=== PATIENT | female | born 1960 | race Caucasian/White ===

== ENCOUNTER → 2018-04-08 13:16 | Outpatient (CLI) | payer OTHER, SELFPAY ==
--- NOTE | 2018-04-08 13:23 | BD_ITS ---
STUDY: DUAL ENERGY X-RAY ABSORPTIOMETRY / DXA REASON FOR EXAM: Female, 57 years old. The patient is postmenopausal. No loss of height. TECHNIQUE: Bone Mineral Density (BMD) measurements of lumbar spine and bilateral hips were obtained. COMPARISON: None. FINDINGS: Lumbar Spine (L1-L4): g/cm2 (1.053) / T-score (-1.1) / Z-score (-0.1) Findings are suggestive of osteopenia with a moderate fracture risk. Left Femur Total: g/cm2 (0.791) / T-score (-1.7) / Z-score (-1.0) Left Femoral Neck: g/cm2 (0.794) / T-score (-1.8) / Z-score (-0.7) Right Femur Total: g/cm2 (0.806) / T-score (-1.6) / Z-score (-0.9) Right Femoral Neck: g/cm2 (0.826) / T-score (-1.5) / Z-score (-0.4) BD/Dexa Bone Density Study IMPRESSION: The patient is considered osteopenic as outlined below according to World Art Organization (WHO) criteria with a moderate fracture risk. Reference Information: The T-score is the number of standard deviations above or below the standard which is normal for young adults at their peak bone mineral density. The World Health Organization (WHO) interprets the T-scores as follows: Above -1 Normal bone density Between -1 and -2.5 Osteopenia Equal to / or below -2.5 Osteoporosis As a practical clinical guideline, osteopenia may be graded as follows: Mild -1 through -1.5 Moderate -1.6 through -2.0 Severe -2.1 through -2.4 The Z-score is the number of standard deviations above or below age-matched controls. A Z-score of less than -1.5 would be considered abnormal. References: 1. NIH Osteoporosis and Related Bone Diseases http://www.osteo.org 2. International Society for Clinical Densitometry http://www.iscd.org 3. National Osteoporosis Foundation http://www.nof.org Electronically Signed: Ehsan Sifuentes MD at 9:29 EDT Tel [phone], Service support ,
== END ==
PROVIDERS: Family Provider Family Medicine; PCP Family Medicine; Visit Provider Family Medicine
DX: Z00.00 Encounter for general adult medical examination without abnormal findings (principal)
CPT/HCPCS: 77080

== ENCOUNTER → 2018-06-06 15:18 | Outpatient (CLI) | payer OTHER, SELFPAY | PROVIDERS: Family Provider Family Medicine; PCP Family Medicine; Visit Provider Family Medicine | DX: Z00.00 Encounter for general adult medical examination without abnormal findings (principal); Z12.31 Encounter for screening mammogram for malignant neoplasm of breast | CPT/HCPCS: 77063; 77067 ==

== ENCOUNTER → 2018-06-16 08:55 | Outpatient (CLI) | payer OTHER, SELFPAY ==
--- NOTE | 2018-06-16 08:57 | BI_ITS ---
MAMMOGRAPHY - UNILATERAL DIAGNOSTIC: RIGHT BREAST REASON FOR EXAM: Female, 57 years old. Abnormal screening mammogram. PERTINENT HISTORY: Non-contributory. TECHNIQUE: Magnification spot views of the right breast were obtained. CAD: Full Field Digital Mammography with Computer Added Detection was performed. COMPARISON: Comparison is made with prior study dated June 06, 2018. FINDINGS: Breast Composition: The breasts are extremely dense, which lowers the sensitivity of mammography. The cluster of microcalcifications in the upper slightly outer portion of the right breast were examined. A biopsy is recommended. No other significant abnormalities are identified. BI/DIAG MAMM W/CAD, UNILAT IMPRESSION: Cluster microcalcification in the right breast as described. A biopsy is recommended. ASSESSMENT CATEGORY: BIRADS Category 4: Suspicious - Biopsy Should Be Considered. A letter regarding these results will be sent to the patient by the facility within 30 days. Approximately 10% of breast cancers are not detected by mammography. A normal mammogram should not delay biopsy of a clinically suspicious abnormality. Electronically Signed: Ehsan Sifuentes MD at 10:11 EDT Tel [phone], Service support ,
== END ==
PROVIDERS: Family Provider Family Medicine; PCP Family Medicine; Visit Provider Family Medicine
DX: R92.8 Other abnormal and inconclusive findings on diagnostic imaging of breast (principal)
CPT/HCPCS: 77065

== ENCOUNTER → 2018-06-27 08:02 | Outpatient (CLI) | payer OTHER, SELFPAY ==
--- NOTE | 2018-06-27 | BRBX_PTH ---
PATIENT: EYAD MCKEON LOC: [facility] U#:[id number] AGE/SX: 65/F ROOM: RE06/27/[address]: Dr. Raquel English MD : 1960 BED: DIS: SPEC #: [id number] RECD: 06/27/18 14:33 STATUS: ABRAN LAURENCE #: [id number] RICHARD: 06/27/18 00:[address]: Raquel English DEPT: SURGICAL PATHOLOGY RECD BY: Rocky Coates ENTERED: 06/27/18 14:34 SP TYPE: BREAST BX OTHR DR: Dr. Dee Pratt MD Tissues: Right breast, NOS Procedures: Surgery Specimen Level IV HEADER OPERATION: Right stereotactic breast biopsy PRE-OP DIAGNOSIS: Right upper outer breast microcalcifications TISSUE SUBMITTED: Right breast core tissue ISCHEMIC TIME: 1 minute FIXATION TIME: 59 hours MICROSCOPIC DIAGNOSIS Right breast, upper outer breast microcalcification, stereotactic core biopsy: Fibrocystic changes and focal dense fibrosis. Negative for atypia or malignancy. Polarizable microcalcifications are noted. BRENT:sriram 06/30/18 COMMENT Correlation with clinical, radiologic findings and appropriate follow up are necessary. MICROSCOPIC DESCRIPTION Slides are reviewed. GROSS DESCRIPTION Received is one container labeled with the patient's name and not further designated. The specimen consists of multiple elongated fragments of chung-yellow fibroadipose tissue that in aggregate measure 3 x 2.5 x 0.3 cm. The entire specimen is submitted in one cassette. / BRENT:sriram 06/27/18 TC:5 CPT: 84926
--- NOTE | 2018-06-27 09:11 | PCM.OP.BLANK ---
Operative Report Date of Procedure: 06/27/18 Rocedure: Stereotactic core biopsy Indications: 57 year-old female with microcalcifications in the upper outer portion of the right breast. Risk benefits were discussed the patient and she elected to proceed with stereotactic core biopsy with clip placement Description of procedure: Patient was brought into the mammography suite and laid prone on the stereotactic table. A timeout was completed verifying correct patient, procedure, site, specially, prior to beginning procedure. The right breast was prepped and draped in usual sterile fashion and using local anesthesia was obtained with 1% lidocaine with epi. Patient's right breast was positioned and placed into compression. Initial film showed calcifications are in the center of the compression paddle. 15? views were then taken. The calcifications were localized. The left breast was prepped draped in usual sterile fashion. An 8-gauge mammotome was set up according to the digital coordinates. The tract of the mammotome was anesthetized with local anesthesia and an incision was made with the 11 blade scalpel at the entry site. The mammotome was advanced to the prefire state. Pre-prior films were checked and verified. The mammotome was fired. Post fire films were also checked and verified. Biopsies were taken from 11:00 to 7:00. The specimen was x-rayed and all the calcifications were within the specimen. Mammotome revolve petite clip was placed at the 12 o'clock position. The mammotome was removed from the breast. An additional films were taken which showed all calcifications were removed and a clip was in place. Pressure was held for hemostasis. Once hemostasis was assured the wound was dressed with Steri-Strips and OpSite. Patient was also taken to the mammography suite for two-view mammography post-biopsy. The patient tolerated the procedure well and was discharged from the mammography suite good condition. complications: none
--- NOTE | 2018-06-27 09:14 | OP.PCM_ITS ---
Operative Report Date of Procedure: 06/27/18 Rocedure: Stereotactic core biopsy Indications: 57 year-old female with microcalcifications in the upper outer portion of the right breast. Risk benefits were discussed the patient and she elected to proceed with stereotactic core biopsy with clip placement Description of procedure: Patient was brought into the mammography suite and laid prone on the stereotactic table. A timeout was completed verifying correct patient, procedure, site, specially, prior to beginning procedure. The right breast was prepped and draped in usual sterile fashion and using local anesthesia was obtained with 1% lidocaine with epi. Patient's right breast was positioned and placed into compression. Initial film showed calcifications are in the center of the compression paddle. 15? views were then taken. The calcifications were localized. The left breast was prepped draped in usual sterile fashion. An 8-gauge mammotome was set up according to the digital coordinates. The tract of the mammotome was anesthetized with local anesthesia and an incision was made with the 11 blade scalpel at the entry site. The mammotome was advanced to the prefire state. Pre-prior films were checked and verified. The mammotome was fired. Post fire films were also checked and verified. Biopsies were taken from 11:00 to 7:00. The specimen was x-rayed and all the calcifications were within the specimen. Mammotome revolve petite clip was placed at the 12 o'clock position. The mammotome was removed from the yen ast. An additional films were taken which showed all calcifications were removed and a clip was in place. Pressure was held for hemostasis. Once hemostasis was assured the wound was dressed with Steri-Strips and OpSite. Patient was also taken to the mammography suite for two-view mammography post- biopsy. The patient tolerated the procedure well and was discharged from the mammography suite good condition. complications: none
== END ==
PROVIDERS: Family Provider Family Medicine; PCP Family Medicine; Visit Provider Surgery
DX: R92.0 Mammographic microcalcification found on diagnostic imaging of breast (principal)
CPT/HCPCS: 19081; 88305; J7050

== ENCOUNTER → 2020-04-14 15:21 | Outpatient (CLI) | payer OTHER, SELFPAY ==
--- NOTE | 2020-04-14 15:23 | BI_ITS ---
MAMMOGRAPHY - BILATERAL SCREENING REASON FOR EXAM: Female, 59 years old. Routine annual screening examination. PERTINENT HISTORY: Non-contributory. TECHNIQUE: Digital bilateral breast hank (3D mammographic acquisition) in the CC and MLO projections. 2-D mediolateral oblique (MLO) and craniocaudad (CC) views of both breasts were obtained. CAD: Full Field Digital Mammography with Computer Added Detection was performed. COMPARISON: Comparison is made with prior study of June 16, 2018 and June 27 2018. FINDINGS: Breast Composition: The breasts are extremely dense, which lowers the sensitivity of mammography. There are no dominant masses or suspicious calcifications. A tissue clip marker is seen in the upper anterior lateral aspect of the right breast. The previously seen calcifications are not seen at this time. No other significant abnormalities are identified. There has been no significant change since the prior study. BI/SCREEN MAMM (CAD) W/HANK BILAT IMPRESSION: Stable bilateral screening mammogram. Yearly follow-up mammogram recommended. (A) ASSESSMENT CATEGORY: BIRADS Category 2: Benign. A letter regarding these results will be sent to the patient by the facility within 30 days. Approximately 10% of breast cancers are not detected by mammography. A normal mammogram should not delay biopsy of a clinically suspicious abnormality. [id number] Electronically Signed: Ehsan Sifuentes, at 8:09 EDT , Service support ,
--- NOTE | 2020-04-14 15:26 | BD_ITS ---
STUDY: DUAL ENERGY X-RAY ABSORPTIOMETRY / DXA REASON FOR EXAM: Female, 59 years old. 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 COMPARISON: Comparison is made with prior study dated April 08, 2018. FINDINGS: Lumbar Spine (L1-L4): g/cm2 (1.067) / T-score (-0.9) / Z-score (0.1) Findings are suggestive of normal bone density with a low fracture risk. Left Femur Total: g/cm2 (0.814) / T-score (-1.5) / Z-score (-0.7) Left Femoral Neck: g/cm2 (0.794) / T-score (-1.8) / Z-score (-0.6) Right Femur Total: g/cm2 (0.811) / T-score (-1.6) / Z-score (-0.7) Right Femoral Neck: g/cm2 (0.808) / T-score (-1.7) / Z-score (-0.5) The T-Scores on the most recent prior examination were: Lumbar Spine (L1-L4): There has been improvement of bone density since the previous examination. Left Femur Total: which represents an improvement of 2.9%. Right Femur Total: which represents an improvement of 0.6%. BD/Dexa Bone Density Study IMPRESSION: The patient is considered osteopenic as outlined below according to World Art Organization (WHO) criteria with a moderate fracture risk. There has been improvement of bone density since the previous examination. Reference Information: The T-score is the number of standard deviations above or below the standard which is normal for young adults at their peak bone mineral density. The World Health Organization (WHO) interprets the T-scores as follows: Above -1 Normal bone density Between -1 and -2.5 Osteopenia Equal to / or below -2.5 Osteoporosis As a practical clinical guideline, osteopenia may be graded as follows: Mild -1 through -1.5 Moderate -1.6 through -2.0 Severe -2.1 through -2.4 The Z-score is the number of standard deviations above or below age-matched controls. A Z-score of less than -1.5 would be considered abnormal. References: 1. NIH Osteoporosis and Related Bone Diseases http://www.osteo.org 2. International Society for Clinical Densitometry http://www.iscd.org 3. National Osteoporosis Foundation http://www.nof.org Electronically Signed: Ehsan Sifuentes, at 8:46 EDT , Service support ,
== END ==
PROVIDERS: PCP Family Medicine; Referring Provider Family Medicine; Visit Provider Family Medicine
DX: Z12.31 Encounter for screening mammogram for malignant neoplasm of breast (principal); M85.80 Other specified disorders of bone density and structure, unspecified site
CPT/HCPCS: 77063; 77067; 77080

== ENCOUNTER → 2020-08-30 16:50 | Outpatient (CLI) | payer OTHER, SELFPAY ==
[2020-08-30 13:54] VITALS: BMI 21.0
== END ==
PROVIDERS: PCP Family Medicine; Referring Provider Nurse Practitioner Women's Health; Visit Provider Nurse Practitioner Women's Health
DX: R30.9 Painful micturition, unspecified (principal)
CPT/HCPCS: 87086; 87088; 87186

== ENCOUNTER → 2021-04-18 14:56 | Outpatient (CLI) | payer BC, SELFPAY ==
[2020-11-30 08:04] VITALS: BMI 20.8
--- NOTE | 2021-04-18 14:57 | BI_ITS ---
MAMMOGRAPHY - BILATERAL SCREENING REASON FOR EXAM: Female, 60 years old. Routine annual screening examination. PERTINENT HISTORY: Non-contributory. History of prior right stereotactic breast biopsy. TECHNIQUE: Digital bilateral breast hank (3D mammographic acquisition) in the CC and MLO projections. 2-D mediolateral oblique (MLO) and craniocaudad (CC) views of both breasts were obtained. CAD: Full Field Digital Mammography with Computer Added Detection was performed. COMPARISON: Comparison is made with prior study dated 04/14/2020 and 06/16/2018. FINDINGS: Breast Composition: The breasts are extremely dense, which lowers the sensitivity of mammography. There are no dominant masses or suspicious calcifications. Once again, a tissue clip marker is seen in the slightly upper lateral anterior aspect of the right breast. No other significant abnormalities are identified. There has been no significant change since the prior study. BI/SCRN MAMM (CAD)W/HANK BILAT IMPRESSION: Stable bilateral screening mammogram. Yearly follow-up mammogram recommended. (A) ASSESSMENT CATEGORY: BIRADS Category 2: Benign. A letter regarding these results will be sent to the patient by the facility within 30 days. Approximately 10% of breast cancers are not detected by mammography. A normal mammogram should not delay biopsy of a clinically suspicious abnormality. [id number] Electronically Signed: Ehsan Sifuentes MD at 15:47 EDT , Service support ,
== END ==
PROVIDERS: PCP Family Medicine; Referring Provider Nurse Practitioner Women's Health; Visit Provider Nurse Practitioner Women's Health
DX: Z12.31 Encounter for screening mammogram for malignant neoplasm of breast (principal)
CPT/HCPCS: 77063; 77067

== ENCOUNTER → 2021-04-20 10:51 | Outpatient (CLI) | payer BC, SELFPAY ==
[2020-11-30 08:04] VITALS: BMI 20.8
--- NOTE | 2021-04-20 10:53 | US_ITS ---
STUDY: ULTRASOUND BREAST - RIGHT REASON FOR EXAM: Female, 60 years old. Abnormal screening mammogram. TECHNIQUE: Axial and longitudinal images of the RIGHT breast were performed with a high resolution ultrasound transducer. # OF IMAGES: 23 COMPARISON: Comparison is made with prior mammogram dated 04/18/2021. FINDINGS: RIGHT Breast: The mammographic abnormality corresponds to a 3 mm x 3 mm x 4 mm hypoechoic slightly irregular nodule at the 11 o''clock position in the breast at 3 cm from nipple. Biopsy is recommended. US/Breast Limited Unilateral IMPRESSION: 3 mm x 3 mm x 4 mm hypoechoic slightly irregular nodule at the 11 o''clock position of the breast 3 cm from nipple. Biopsy is recommended. ASSESSMENT CATEGORY: BIRADS Category 4: Suspicious - Biopsy Should Be Considered. A letter regarding these results will be sent to the patient by the facility within 30 days. Electronically Signed: Ehsan Sifuentes MD at 13:01 EDT , Service support ,
== END ==
PROVIDERS: PCP Family Medicine; Referring Provider Nurse Practitioner Women's Health; Visit Provider Nurse Practitioner Women's Health
DX: N63.10 Unspecified lump in the right breast, unspecified quadrant (principal)
CPT/HCPCS: 76642

== ENCOUNTER → 2021-05-02 12:46 | Outpatient (CLI) | payer BC, SELFPAY ==
[2021-04-25 10:01] VITALS: BMI 20.2
--- NOTE | 2021-05-02 | BRBX_PTH ---
PATIENT: EYAD MCKEON LOC: [facility] U#:[id number] AGE/SX: 65/F ROOM: RE05/02/[address]: Dr. Raquel English MD : 1960 BED: DIS: SPEC #: [id number] RECD: 05/02/21 14:13 STATUS: ABRAN LAURENCE #: [id number] RICHARD: 05/02/21 00:[address]: Raquel English DEPT: SURGICAL PATHOLOGY RECD BY: Jeannie Kelly ENTERED: 05/03/21 09:38 SP TYPE: BREAST BX OTHR DR: Dr. Dee Pratt MD Tissues: Breast, NOS Procedures: Surgery Specimen Level IV HEADER OPERATION: Ultrasound-guided right breast biopsy PRE-OP DIAGNOSIS: Abnormal mammogram TISSUE SUBMITTED: Right breast MICROSCOPIC DIAGNOSIS Right breast, ultrasound-guided core biopsy: Adenosis. AM:sriram 05/04/2021 COMMENT Immunohistochemistry ([id number]) supports the above diagnosis. The lesion may represent a central scar. Clinical correlation is suggested. Case has been reviewed in consultation with Dr. Alexander who concurs with the above diagnosis. IDC:SJ MICROSCOPIC DESCRIPTION Slides are reviewed. GROSS DESCRIPTION Received in fixative is one container labeled with the patient name and designated right breast. The specimen consists of multiple elongated fragments of chung-yellow fibroadipose tissue that in aggregate measure 3 x 2.5 x 0.2 cm. The entire specimen is submitted in one cassette. / BRENT:sriram 05/03/21 TC:5 CPT: 73885
--- NOTE | 2021-05-02 | IMM_PTH ---
PATIENT: EYAD MCKEON LOC: [facility] U#:[id number] AGE/SX: 65/F ROOM: RE05/02/[address]: Dr. Raquel English MD : 1960 BED: DIS: SPEC #: [id number] RECD: 05/05/21 10:51 STATUS: ABRAN REQ #: [id number] RICHARD: 05/02/21 00:[address]: Raquel English DEPT: IMMUNOHISTOCHEMISTRY RECD BY: Maxine Baron ENTERED: 05/05/21 10:52 SP TYPE: IMMUNO OTHR DR: Dr. Dee Pratt MD Tissues: Right breast, NOS Procedures: Calponin-1(initial) CK5-6 (add) P40 (add) PHYSICIAN & INSTITUTION [facility] [id number] SPECIMEN INFORMATION: Tissue Source: Right breast Clinical Info: Abnormal mammogram Specimen Number: [id number] CPT code: 97301, 29453 x2 METHODOLOGY: Deparaffinized sections of prefer/formalin-fixed tissue or PAP/DQ stained slides are incubated with monoclonal/polyclonal antibodies/oligonucleotide probes. Localization is made via biotin free immunoperoxidase method. Appropriate controls are performed and reacted as expected. Results on target cell population are indicated in the following table: RESULTS: ANTIBODY / CLONE RESULT P40 (BC28) positive Calponin-1 ([id number]) positive CK5-6 (D5 & 1684) positive These tests were developed and their performance characteristics determined by [facility]. They may not have been cleared or approved by the U.S. Food and Drug Administration. The FDA has determined that such clearance or approval is not necessary. The above immunohistochemical/dualISH markers are ordered and reviewed by the Pathologist. INTERPRETATION: Right breast, ultrasound-guided biopsy: Consistent with adenosis. AM:sriram 05/08/2021 Case has been reviewed in consultation with Dr. Alexander who concurs with the above diagnosis. IDC:SJ
--- NOTE | 2021-05-02 12:48 | US_ITS ---
EXAM DESCRIPTION: Ultrasound directed right breast biopsy CLINICAL HISTORY: 60 years Female, abnormal breast US COMPARISON: Previous breast ultrasound obtained on 04/20/2021 FINDINGS: An ultrasound directed right breast biopsy was performed by Dr. JESSE SANDERS. Multiple core biopsies were obtained with ultrasound guidance. After this a clip was placed at the site of the biopsy. This was confirmed by a couple mammogram images. US/US Breast Biopsy 1st Lesion IMPRESSION: An ultrasound directed breast biopsy was performed, as described above Electronically Signed: Teddy Hamilton DO at 14:51 EDT Tel , Service support ,
--- NOTE | 2021-05-02 14:07 | PCM.OPRPT ---
Report of Operation Date of Procedure: 05/02/21 Pre-Operative Diagnosis: Right breast mass Post-Operative Diagnosis: Same Surgery/Procedure Performed:: Ultrasound-guided right breast biopsy 11:00 4 cm from the nipple Surgeon: Raquel English Type of Anesthesia: Local Specimen's removed: Right breast mass 11:00 4 cm from the nipple Description of Procedure: Procedure: ultrasound-guided core biopsy Indications: 60 year-old female with hypoechoic nodule at 11:00 in the right breast 4 centimeters from the nipple. Risk benefits were discussed the patient and she elected to proceed with ultrasound guided core biopsy with clip placement Description of procedure: Patient was brought into the ultrasound room in the right breast was marked. A timeout was completed verifying correct patient, procedure, site, specially, prior to beginning procedure. The right breast was prepped and draped in usual sterile fashion and using local anesthesia was obtained with 1% lidocaine with epi. The lesion was located with the ultrasound. Small incision was made with 11 blade to introduced the BARD MaxCore through the skin. Under ultrasound guidance multiple core samples were obtained using then 14-gauge BARD MaxCore; however appeared that the biopsy device slid over the top of the lesion and the first sample did get a small amount second. Did exchange devices to the mammotome. 13-gauge mammotome was used to take multiple samples. All specimens were sent in formalin for pathology. The mammotome mammostar clip was then deployed into the biopsy cavity under ultrasound guidance and a picture was taken. Upon completion procedure hemostasis was obtained and a Steri-Strip and OpSite were placed. Patient was then taken to the mammography suite for clip verification. The clip was verified--it is the more superior barbell clip on the MLO view. The patient tolerated the procedure well and was discharged from the breast imaging department good condition. complications: none Complications None
== END ==
PROVIDERS: PCP Family Medicine; Referring Provider Surgery; Visit Provider Surgery
DX: N63.11 Unspecified lump in the right breast, upper outer quadrant (principal)
CPT/HCPCS: 19083; 88305; 88341; 88342

== ENCOUNTER → 2021-07-17 | Outpatient (CLI) | payer BC, SELFPAY | END | disposition home or self-care (01) | LOC: LABSPEC 10:12 | PROVIDERS: PCP Family Medicine; Referring Provider Physician Assistant; Visit Provider Physician Assistant | DX: Z20.822 Contact with and (suspected) exposure to COVID-19 (principal) | CPT/HCPCS: 87635; U0005; U0003 ==

== ENCOUNTER → 2021-09-27 | Outpatient (CLI) | payer BC, SELFPAY | END | disposition home or self-care (01) | LOC: LABSPEC 13:07 | PROVIDERS: PCP Family Medicine; Referring Provider Nurse Practitioner Women's Health; Visit Provider Nurse Practitioner Women's Health | DX: R39.15 Urgency of urination (principal) | CPT/HCPCS: 87086; 87088; 87186 ==

== ENCOUNTER → 2022-05-14 | Outpatient (CLI) | payer OTHER, SELFPAY ==
--- NOTE | 2022-05-14 10:08 | BI_ITS ---
MAMMOGRAPHY - BILATERAL SCREENING 3-D TOMOSYNTHESIS REASON FOR EXAM: Female, 61 years old. SCREENING PERTINENT HISTORY: No significant family history. TECHNIQUE: 2-D mammograms and 3-D Tomosynthesis of the breast (s) were performed. CAD was performed. COMPARISON: 04/18/2021 FINDINGS: The breast composition is heterogeneously dense that can obscure small breast masses. Scattered benign calcifications are seen. No dense spiculated masses or suspicious microcalcifications are identified. No architectural distortion is identified. There is no skin thickening or retraction. There has been no significant change since the prior study. BI/SCRN MAMM (CAD)W/HANK BILAT IMPRESSION: No mammographic signs of malignancy. Routine yearly mammograms recommended. ASSESSMENT CATEGORY: BIRADS Category 1: Negative. A letter regarding these results will be sent to the patient by the facility within 30 days. FOLLOW UP RECOMMENDATION: Yearly follow up mammogram recommended. (A) Approximately 10% of breast cancers are not detected by mammography. A normal mammogram should not delay biopsy of a clinically suspicious abnormality. Electronically Signed: Kirill Flynn MD at 15:56 EDT ,
== END | disposition home or self-care (01) ==
LOC: OPBI 10:07
PROVIDERS: PCP Family Medicine; Visit Provider Family Medicine
DX: Z12.31 Encounter for screening mammogram for malignant neoplasm of breast (principal)
CPT/HCPCS: 77063; 77067

== ENCOUNTER → 2023-01-18 | Outpatient (CLI) | payer OTHER, SELFPAY ==
--- NOTE | 2023-01-18 11:52 | RAD_ITS ---
STUDY: X-RAY - RIGHT HAND REASON FOR EXAM: Female, 62 years old. HAND PAIN TECHNIQUE: 3 view(s) of the hand. COMPARISON: None. FINDINGS: Normal radiocarpal articulation. Normal distal radioulnar joint. Normal visualized carpal bones. Normal carpal articulations Normal carpometacarpal articulation of the thumb. Normal second through fifth carpometacarpal joints. Normal metacarpi. Normal metacarpophalangeal joint of the thumb. Normal interphalangeal joint of the thumb. Normal proximal and distal phalanges of the thumb. Normal metacarpophalangeal joints of the second through fifth fingers. Normal proximal and distal interphalangeal joints of the second through fifth fingers. Normal phalanges of the second through fifth fingers. The soft tissue structures are unremarkable. RAD/Hand Min 3 Views IMPRESSION: Normal x-ray examination of the hand. Electronically Signed: Hilton Fajardo MD at 21:55 EDT ,
== END | disposition home or self-care (01) ==
LOC: MTRAD 11:50
PROVIDERS: PCP Family Medicine; Referring Provider Family Medicine; Visit Provider Family Medicine
DX: S60.221A Contusion of right hand, initial encounter (principal)
CPT/HCPCS: 73130

== ENCOUNTER → 2023-04-12 | Outpatient (CLI) | payer OTHER, SELFPAY ==
[2023-04-12 16:47] LABS: Vitamin D,25 Hydroxy 40.7 ng/mL
[2023-04-12 16:54] LABS: Cholesterol 248 mg/dL (200); High Density Lipoprotein 84 mg/dL; Triglycerides 54 mg/dL; Very Low Density Lipoprotein 11 mg/dL (5-40)
== END | disposition home or self-care (01) ==
LOC: MFPLAB 10:27
PROVIDERS: PCP Family Medicine; Visit Provider Family Medicine
DX: M85.80 Other specified disorders of bone density and structure, unspecified site (principal); E78.5 Hyperlipidemia, unspecified
CPT/HCPCS: 36415; 80061; 82306

== ENCOUNTER → 2023-05-15 | Outpatient (CLI) | payer OTHER, SELFPAY ==
--- NOTE | 2023-05-15 09:54 | BD_ITS ---
STUDY: DUAL ENERGY X-RAY ABSORPTIOMETRY / DXA REASON FOR EXAM: Female, 62 years old. 733.90OsteopeniaBONE DENSITY REASON FOR EXAM TECHNIQUE: Bone Mineral Density (BMD) measurements of lumbar spine and bilateral hips were obtained. COMPARISON: Comparison is made with prior study dated April 14, 2020. FINDINGS: Lumbar Spine (L1-L4): g/cm2 (0.939) / T-score (-1.0) / Z-score (0.6) Findings are suggestive of osteopenia with a low fracture risk. Left Femur Total: g/cm2 (0.730) / T-score (-1.7) / Z-score (-0.7) Left Femoral Neck: g/cm2 (0.636) / T-score (-1.9) / Z-score (-0.6) Right Femur Total: g/cm2 (0.729) / T-score (-1.7) / Z-score (-0.7) Right Femoral Neck: g/cm2 (0.676) / T-score (-1.6) / Z-score (-0.2) The T-Scores on the most recent prior examination were: Lumbar Spine (L1-L4): There has been worsening of bone density since the previous examination. Left Femur Total: which represents a worsening of 3%. Right Femur Total: which represents a worsening of 3%. BD/Dexa Bone Density Study IMPRESSION: The patient is considered osteopenic as outlined below according to World Art Organization (WHO) criteria with a moderate fracture risk. There has been worsening of bone density since the previous examination. Reference Information: The T-score is the number of standard deviations above or below the standard which is normal for young adults at their peak bone mineral density. The World Health Organization (WHO) interprets the T-scores as follows: Above -1 Normal bone density Between -1 and -2.5 Osteopenia Equal to / or below -2.5 Osteoporosis As a practical clinical guideline, osteopenia may be graded as follows: Mild -1 through -1.5 Moderate -1.6 through -2.0 Severe -2.1 through -2.4 The Z-score is the number of standard deviations above or below age-matched controls. A Z-score of less than -1.5 would be considered abnormal. References: 1. NIH Osteoporosis and Related Bone Diseases www osteo.org 2. International Society for Clinical Densitometry www iscd.org 3. National Osteoporosis Foundation www nof.org Electronically Signed: Ehsan Sifuentes MD at 10:38 EDT ,
--- NOTE | 2023-05-15 09:54 | BI_ITS ---
MAMMOGRAPHY - BILATERAL SCREENING REASON FOR EXAM: Female, 62 years old. Routine annual screening examination. PERTINENT HISTORY: Non-contributory. Prior right ultrasound breast biopsy and prior right stereotactic breast biopsy. TECHNIQUE: Digital bilateral breast hank (3D mammographic acquisition) in the CC and MLO projections. 2-D mediolateral oblique (MLO) and craniocaudad (CC) views of both breasts were obtained. CAD: Full Field Digital Mammography with Computer Added Detection was performed. COMPARISON: Comparison is made with prior study dated May 14, 2022 and April 18, 2021.. FINDINGS: Breast Composition: The breasts are extremely dense, which lowers the sensitivity of mammography. There are no dominant masses or suspicious calcifications. A tissue clip marker is once again seen in the slightly upper lateral anterior aspect of the right breast. A second tissue clip marker is seen within the tiny nodule in the anterior upper lateral aspect of the right breast as well. No other significant abnormalities are identified. There has been no significant change since the prior study. BI/SCRN MAMM (CAD)W/HANK BILAT IMPRESSION: Stable bilateral screening mammogram. Yearly follow-up mammogram recommended. (A) ASSESSMENT CATEGORY: BIRADS Category 2: Benign. A letter regarding these results will be sent to the patient by the facility within 30 days. Approximately 10% of breast cancers are not detected by mammography. A normal mammogram should not delay biopsy of a clinically suspicious abnormality. [id number] Electronically Signed: Ehsan Sifuentes MD at 10:55 EDT ,
== END | disposition home or self-care (01) ==
LOC: OPBD 09:49
PROVIDERS: PCP Family Medicine; Referring Provider Family Medicine; Visit Provider Family Medicine
DX: Z12.31 Encounter for screening mammogram for malignant neoplasm of breast (principal); M85.80 Other specified disorders of bone density and structure, unspecified site
CPT/HCPCS: 77063; 77067; 77080

== ENCOUNTER → 2024-04-20 | Outpatient (CLI) | payer OTHER, SELFPAY ==
[2024-04-20 15:31] LABS: AST(SGOT) 39 U/L (15-37); Alanine Aminotransfer ALT/SGPT 34 U/L (13-56); Cholesterol 158 mg/dL (200); High Density Lipoprotein 74 mg/dL; Triglycerides 89 mg/dL; Very Low Density Lipoprotein 18 mg/dL (5-40)
== END | disposition home or self-care (01) ==
LOC: MFPLAB 12:07
PROVIDERS: PCP Family Medicine; Visit Provider Family Medicine
DX: E78.5 Hyperlipidemia, unspecified (principal)
CPT/HCPCS: 36415; 80061; 84450; 84460

== ENCOUNTER → 2024-05-18 | Outpatient (CLI) | payer OTHER, SELFPAY ==
--- NOTE | 2024-05-18 08:33 | BI_ITS ---
MAMMOGRAPHY - BILATERAL SCREENING REASON FOR EXAM: Female, 63 years old. Routine annual screening examination. PERTINENT HISTORY: Non-contributory. History of prior right stereotactic breast biopsy. TECHNIQUE: Digital bilateral breast hank (3D mammographic acquisition) in the CC and MLO projections. 2-D mediolateral oblique (MLO) and craniocaudad (CC) views of both breasts were obtained. CAD: Full Field Digital Mammography with Computer Added Detection was performed. COMPARISON: Comparison is made with prior study May 15, 2023 and May 14, 2022. FINDINGS: Breast Composition: The breasts are extremely dense, which lowers the sensitivity of mammography. There are no dominant masses or suspicious calcifications. A tissue clip marker is once again seen in the slightly upper lateral anterior aspect of the right breast. A second surgical marker is also seen within the tiny nodule in the anterior upper lateral aspect of the right breast No other significant abnormalities are identified. There has been no significant change since the prior study. BI/SCRN MAMM (CAD)W/HANK BILAT IMPRESSION: Stable bilateral screening mammogram. Yearly follow-up mammogram recommended. (A) ASSESSMENT CATEGORY: BIRADS Category 2: Benign. A letter regarding these results will be sent to the patient by the facility within 30 days. Approximately 10% of breast cancers are not detected by mammography. A normal mammogram should not delay biopsy of a clinically suspicious abnormality. [id number] Electronically Signed: Ehsan Sifuentes MD at 9:32 EDT ,
== END | disposition home or self-care (01) ==
LOC: OPBI 08:33
PROVIDERS: PCP Family Medicine; Referring Provider Family Medicine; Visit Provider Family Medicine
DX: Z12.31 Encounter for screening mammogram for malignant neoplasm of breast (principal)
CPT/HCPCS: 77063; 77067

== ENCOUNTER → 2025-04-26 | Outpatient (CLI) | payer OTHER, SELFPAY ==
[2025-04-26 11:53] LABS: AST(SGOT) 36 U/L (<=31); Alanine Aminotransfer ALT/SGPT 23 U/L (<=34); Cholesterol 161 mg/dL (<=200); Low Density Lipoprotein Calc. 86 mg/dL; Triglycerides 72 mg/dL; Very Low Density Lipoprotein 14 mg/dL (5-40); cholesterol:hdl ratio screen 2.64
== END | disposition home or self-care (01) ==
LOC: MFPLAB 08:56
DX: E78.5 Hyperlipidemia, unspecified (principal)
CPT/HCPCS: 36415; 80061; 84450; 84460

== ENCOUNTER → 2025-05-19 | Outpatient (CLI) | payer OTHER, SELFPAY ==
--- NOTE | 2025-05-19 07:53 | BI_ITS ---
EXAM: SCRN MAMM (CAD)W/HANK BILAT DATE: 05/19/2025 CLINICAL HISTORY: F, Age 64 y/o , POST NEMOPAUSE No family history. Stereotactic TECHNIQUE: SCRN MAMM (CAD)W/HANK BILAT COMPARISON: Prior exam(s) dated May 18, 2024.. FINDINGS: TISSUE DENSITY: The breasts are extremely dense, which lowers the sensitivity of mammography. Bilateral Breast Mammographic Findings: No significant masses, calcifications or other abnormalities are identified. A tissue clip marker is once again seen in the slightly upper lateral aspect of the right breast. A 2nd tissue clip markers No suspicious masses, areas of developing architectural distortion, or suspicious calcifications. There has been no significant interval change. BI/SCRN MAMM (CAD)W/HANK BILAT IMPRESSION: Stable examination. OVERALL FINAL ASSESSMENT BI-RADS 2: BENIGN RECOMMENDATION: Routine annual follow-up in 1 Year A letter with findings and recommendations will be mailed to the patient. Reading Location: [facility]
--- NOTE | 2025-05-19 07:55 | BD_ITS ---
PROCEDURE: DEXA BONE DENSITY STUDY 05/19/2025 REASON FOR EXAM: F, age 64 y/o . Postmenopausal. TECHNIQUE: DEXA BONE DENSITY STUDY COMPARISON: Prior study dated May 15, 2023. FINDINGS: BMD and T-SCORES Lumbar spine: 0.909 g/cm2, T-score -1.3 Levels: L1 through L4 Change from prior: Loss of 3.2%. Left femoral neck: 0.592 g/cm2, T-score -2.3 Femoral neck comparison data not recommended for monitoring change. Left total hip: 0.727 g/cm2, T-score -1.8 Change from prior: Loss of 0.5%. Right femoral neck: 0.631 g/cm2, T-score -2.0 Femoral neck comparison data not recommended for monitoring change. Right total hip: 0.731 g/cm2, T-score -1.2 Change from prior: Improvement of 0.3%. The World Health Organization has defined the following categories based on bone density: Normal bone density: T-score equal to or greater than -1.0 Osteopenia: T-score between -1.0 and -2.5 Osteoporosis: T-score equal to or less than -2.5 FRAX (or Comparable) Fracture Risk Assessment: 10 Year Probability of Fracture: Major Osteoporotic Fracture: 8.9% Hip Fracture: 1.3% (Note: FRAX is not to be reported in setting of normal range bone density, osteoporosis on DEXA, known history of osteoporosis, prior osteoporotic hip or vertebral fracture, or for any patient undergoing pharmacological treatment for bone loss.) The National Osteoporosis Foundation (NOF) recommends pharmacological treatment for patients with a FRAX 10-year risk of 3% or higher for a hip fracture, or 20% or higher for a major osteoporotic fracture, to prevent osteoporosis and reduce fracture risk. The patient does meet the pharmacological treatment recommendations for prevention of osteoporosis. BD/Dexa Bone Density Study IMPRESSION: OSTEOPENIA. Recommend follow-up as clinically warranted. Reading Location: [id number]
--- OUTSIDE RECORDS SUMMARY | 2025-05-19 08:13 | XMS RPT_ITS | CCD ---
Author Organization [facility] Care Team Providers Care Environmental Services Worker Name Role Phone McMorrow BAG MACHINE TENDER-C, Mando Primary Care Provider [phone] McMorrow BAG MACHINE TENDER-C, Mando Attending Provider McMorrow BAG MACHINE TENDER-C, Mando Referring Provider Antonietaorrow BAG MACHINE TENDER, Mando Attending Unavailable Antonietaorrow BAG MACHINE TENDER, Mando Primary Care Unavailable Antonietaorrow BAG MACHINE TENDER, Mando Referring Unavailable Dee Pratt S Referring Unavailable Jopartha, Dee S Attending Unavailable Dee Pratt S [facility] Mando Attending Unavailable [facility]ACHINE TEND[facility], Mando Primary Care Unavailable [facility] BAG MACHINE TENDER, Mando Referring Unavailable Allergies Allergy Classification Reported Allergen(s) Allergy Type Date of Onset Reaction(s) Facility (5 sources) Penicillins; Translations: [Penicillins] Allergy to substance 09-27-2021 [facility] Medications Current Medications Medication Drug Class(es) Dates Sig (Normalized) Sig (Original) alendronic acid 70 mg oral tablet (4 sources) Bisphosphonate Start: 06-20-2018 take 1 tablet by mouth every week Alendronate 70 mg tablet Active 70 mg PO EVERY WEEK June 20, 2018 12:00am biotin 10 mg oral capsule (4 sources) Start: 06-20-2018 take 1 capsule by mouth once daily Biotin 10,000 mcg capsule Active 94445 ug PO DAILY 0 June 20, 2018 12:00am estradiol 0.1 mg/ml vaginal cream (4 sources) Estrogen Start: 11-30-2020 Estradiol 0.01 % (0.1 mg/gram) cream Active 0 VAGINAL .COMPLEX 42.5 2 November 30, 2020 1:00am small amount as directed vaginal every other day X 4 weeks then twice a week; Start: 11-30-2020 Estradiol Acti ve 0 VAGINAL .COMPLEX 42.5 November 30, 2020 1:00am small amount as directed vaginal every other day X 4 weeks then twice a week; Vizkmedy-Tyf-Dpcs-Fa-Lutein (Centrum Silver Women) 8 mg iron-400 mcg-300 mcg tablet (1 source) Start: 11-30-2020 take 1 tablet by mouth once daily Bfmymaqr-Rlj-Oong-Fa-Lutein (Centrum Silver Women) 8 mg iron-400 mcg-300 mcg tablet Active 1 TABLET PO DAILY November 30, 2020 1:00am Eywqlrfn-Gpq-Jqct-Fa-Vit K-L ut (Centrum Silver Women) 8 mg iron-400 mcg-300 mcg tablet (3 sources) Start: 11-30-2020 Ghieghps-Lkb-Znfq-Fa-Vit K-L ut (Centrum Silver Women) 8 mg iron-400 mcg-300 mcg tablet Active 1 {tbl} PO DAILY November 30, 2020 1:00am Start: 11-30-2020 take 1 tablet by aydee th once daily Siyqguks-Acd-Txgt-Fa-Vit K-Lut (Centrum Silver Women) 8 mg iron-400 mcg-300 mcg tablet Active 1 TABLET PO DAILY November 30, 2020 1:00am Completed/Discontinued Medications Medication Drug Class(es) Dates Sig (Normalized) Sig (Original) nitrofurantoin, macrocrystals 100 mg oral capsule (8 sources) Nitrofuran Antibacterial Start: 09-27-2021 End: 10-04-2021 take 1 capsule by mouth twice daily at mealtime Nitrofurantoin Macrocrystal 100 mg capsule Discontinued 100 mg PO TWICE A DAY 14 7 0 September 27, 2021 1:00am October 03, 2021 1:00am October 04, 2021 1:01am administer with food (meal or snack) Start: 08-30-2020 End: 09-06-2020 take 1 capsule by mouth twice daily at mealtime Nitrofurantoin Macrocrystal 100 mg capsule Discontinued 100 mg PO TWICE A DAY 14 7 0 August 30, 2020 1:00am September 05, 2020 1:00am September 06, 2020 1:02am administer with food (meal or snack) Problems Problem Classification Problem Date Documented Da te Episodic/Chronic Disorders of lipid metabolism (1 source) Hyperlipidemia, unspecified; Translations: [Hyperlipidemia, unspecified] Onset: 05-04-2025 Chronic Immunizations and screening for infectious disease (4 sources) Contact with or exposure to other viral diseases; Translations: [Exposure to COVID-19 virus] 07-17-2021 Episodic Nonmalignant breast conditions (4 sources) Mammographic breast mass; Translations: [Unspecified lump in the right breast, unspecified quadrant] 04-25-2021 Episodic Other screening for suspected conditions (not mental disorders or infectious disease) (3 sources) Encounter for screening for osteoporosis; Translations: [Encounter for other screening for malignant neoplasm of breast] Onset: 06-04-2024 Episodic Results Test Name Value Interpretation Reference Range Facility AST(SGOT)on 04-26-2025 AST [Catalytic activity/Vol] 36 U/L High <=31 [facility] Comment on above: Order Comment: Order Date: 04/23/25 Order Info: [id number] - LIPID Order Info: 1920-04 - AST Order Info: 1742-02 - ALT Performed By: #### L 501.4100 #### [facility] [address] [place], [place], [address] Alanine Aminotransferas (SGP T)on 04-26-2025 ALT [Catalytic activity/Vol] 23 U/L Normal <=34 [facility] Comment on above: Order Comment: Order Date: 04/23/25 Order Info: [id number] - LIPID Order Info: 1920-04 - AST Order Info: 1742-02 - ALT Performed By: #### L 501.4405 #### [facility] [address] [place], [place], [address] Calculated very low density lipoprotein (VLDL) cholesterol measurementOrdered By: Mando Lema on 04-26-2025 Calculated very low density lipoprotein (VLDL) cholesterol measurement 14 mg/dL 5-40 [facility] LDL calc ser/plasOrdered By: Mando Lema on 04-26-2025 Cholesterol in LDL [Mass/Vol] 86 mg/dL [facility] Comment on above: Gljknittya=386-221 m g/dL & Higher Pqho=895 mg/dL or greaterFriedwald Equation for LDL-C Laboratory - Chemistry and C hemistry - challengeOrdered By: Mando Lema on 04-26-2025 AST [Catalytic activity/Vol] 36 U/L High <32 [facility] Lipid Profileon 04-26-2025 CHOL:HDL 2.64 Normal [facility] Comment on above: Order Comment: Order Date: 04/23/25 Order Info: [id number] - LIPID Order Info: 1920-04 AST Order Info: 1742-02 - ALT Performed By: #### L 500.4100 #### [facility] [address] [place], [address] Cholesterol [Mass/Vol] 161 mg/dL Normal <=200 [facility] Comment on above: Order Comment: Order Date: 04/23/25 Order Info: - LIPID Order Info: 1920-04 AST Order Info: 1742-02 - ALT Result Comment: Chol esterol level, Desirable <200 mg/dL Borderline high cholesterol 200-239 mg/dL High cholesterol >=240 mg/dL Recommendations of the NCEP Adult Treatment Panel for the following risk-cutoff thresholds for the [place] population. Performed By: #### L 500.4100 #### [facility] [address] [place], [address] Cholesterol in HDL [Mass/Vol] 61 mg/dL Normal [facility] Comment on above: Order Comment: Order Date: 04/23/25 Order Info: [id number] - LIPID Order Info: 1920-04 AST Order Info: 1742-02 - ALT Result Comment: Cori onal Cholesterol Education Program (NCEP) guidelines: <40 mg/dL: Low HDL-cholesterol (major risk factor for CHD) >= 60 mg/dL: High HDL-cholesterol (negative risk factor for CHD) HDL-cholesterol is affected by a number of factors, e.g. smoking, exercise, hormones, sex and age. Performed By: #### L 500.4100 #### [facility] [address] [place], [address] Cholesterol in LDL [Mass/Vol] 86 mg/dL Normal [facility] Comment on above: Order Comment: Order Date: 04/23/25 Order Info: [id number] - LIPID Order Info: 1920-8 - AST Order Info: 1742-02 - ALT Result Comment: Bord czfhxf=274-026 mg/dL Higher Gkxj=120 mg/dL or greater Friedwald Equation for LDL-C Performed By: #### L 500.4100 #### [facility] [address] [place], [place], [id number] Cholesterol in VLDL [Mass/Vol] 14 mg/dL Normal 5-40 [facility] Comment on above: Order Comment: Order Date: 04/23/25 Order Info: [id number] - LIPID Order Info: 1920-04 - AST Order Info: 1742-02 - ALT Performed By: #### L 500.4100 #### [facility] [address] [place], [place], [id number] Triglyceride [Mass/Vol] 72 mg/dL Normal [facility] Comment on above: Order Comment: Order Date: 04/23/25 Order Info: [id number] - LIPID Order Info: 1920-04 - AST Order Info: 1742-02 - ALT Result Comment: The drugs N-Acetylcysteine and Metamizole may falsely depress this assay. Normal range: <150 mg/dL Borderline High: 150-199 mg/dL High: 200-499 mg/dL Very High: >500 mg/dL Performed By: #### L 500.4100 #### [facility] [address] [place], [place], [id number] Screening total cholesterol/ high density lipoprotein (HDL) cholesterol ratioOrdered By: Mando Lema on 04-26-2025 Cholesterol.total/Renetta sterol in HDL [Mass ratio] 2.64 {ratio} [facility] Serum or plasma alanine robins otransferase (ALT) measurementOrdered By: Mando Lema on 04-26-2025 ALT [Catalytic activity/Vol] 23 U/L <35 [facility] Serum or plasma cholesterol in HDL measurement (mass/volume)Ordered By: Mando Lema on 04-26-2025 Cholesterol in HDL [Mass/Vol] 61 mg/dL >40 [facility] Comment on above: National Cholesterol Education Program (NCEP) guidelines:<40 mg/dL: Low HDL-cholesterol (major risk factor for CHD)>= 60 mg/dL: High HDL-cholesterol (negative risk factor for CHD)HDL-cholesterol is affected by a number of factors, e.g. smoking, exercise, hormones, sex and age. Serum or plasma cholesterol measurement (mass/volume)Ordered By: Mando Lema on 04-26-2025 Cholesterol [Mass/Vol] 161 mg/dL <201 [facility] Comment on above: Cholesterol level, D esirable <200 mg/dLBorderline high cholesterol 200-239 mg/dLHigh cholesterol >=240 mg/dLRecommendations of the NCEP Adult Treatment Panel for the following risk-cutoff thresholds for the [place] population. Triglycerides measurementOrd ered By: Mando Lema on 04-26-2025 Triglyceride [Mass/Vol] 72 mg/dL <199 [facility] Comment on above: The drugs N-Acetylcy steine and Metamizole may falsely depress this assay. Normal range: <150 mg/dLBorderline High: 150-199 mg/dLHigh: 200-499 mg/dLVery High: >500 mg/dL SCRN MAMM (CAD)W/HANK BILATo n 05-18-2024 SCRN MAMM (CAD)W/HANK BILAT [facility] [address] [place], [place] [address] SCRN MAMM (CAD)W/HANK BILAT MR#: [id number] Acct: [id number] Name: EYAD MCKEON Rep #: [id number] : 1960 F 63 From: Ehsan enamorado MD PCP: Dr. Dee Pratt MD Status: [facility] Study: SCRN MAMM (CAD)W/HANK BILAT Date of Exam: 04/30 06/23 Exam# [id number] Ordering Dr: Dee Pratt MD [id number] MAMMOGRAPHY - BILATERAL SCREENING REASON FOR EXAM: Female, 63 years old. Routine annual screening examination. PERTINENT HISTORY: Non-contributory. History of prior right stereotactic breast biopsy. TECHNIQUE: Digital bilateral breast hank (3D mammographic acquisition) in the CC and MLO projections. 2-D mediolateral oblique (MLO) and craniocaudad (CC) views of both breasts were obtained. CAD: Full Field Digital Mammography with Computer Added Detection was performed. COMPARISON: Comparison is made with prior study May 15, 2023 and May 14, 2022. FINDINGS: Breast Composition: The breasts are extremely dense, which lowers the sensitivity of mammography. There are no dominant masses or suspicious calcifications. A tissue clip marker is once again seen in the slightly upper lateral anterior aspect of the right breast. A second surgical marker is also seen within the tiny nodule in the anterior upper lateral aspect of the right breast No other significant abnormalities are identified. There has been no significant change since the prior study. BI/SCRN MAMM (CAD)W/HANK BILAT IMPRESSION: Stable bilateral screening mammogram. Yearly follow-up mammogram recommended. (A) ASSESSMENT CATEGORY: BIRADS Category 2: Benign. A letter regarding these results will be sent to the patient by the facility within 30 days. Approximately 10% of breast cancers are not detected by mammography. A normal mammogram should not delay biopsy of a clinically suspicious abnormality. [id number] Electronically Signed: Ehsan Sifuentes MD at 9:32 EDT , CC: Dr. Dee Pratt MD Wound Care Physician: Signed Normal [facility] Basophil percentageOrdered B y: Dee Pratt on 04-12-2023 Cholesterol [Mass/Vol] 248 mg/dL <200 [facility] Comment on above: <200 mg/dL Desirable 200-240 mg/dL Borderline >240 mg/dL High Risk Triglyceride [Mass/Vol] 54 mg/dL <199 [facility] Comment on above: The drugs N-Acetylcy steine and Metamizole may falsely depress this assay.Serum Triglycerides Reference Interval Normal <150 mg/dL Borderline high 150 - 199 mg/dL High 200 - 499 mg/dL Very High > or = 500 mg/dL No Panel InformationOrdered By: Dee Pratt on 04-12-2023 Vitamin D 25-Hydroxy 40.7 ng/mL [facility] Comment on above: Vitamin D 25(OH) Sta tus Range Deficiency <20 ng/mL (50nmol/L) Insufficiency 20 - 30 ng/mL (50 - 75 nmol/L) Sufficiency 30 - 100 ng/mL (75 - 250 nmol/L) Toxicity >100 ng/mL (>250 nmol/L) Serum or plasma cholesterol in HDL measurement (mass/volume)Ordered By: Dee Pratt on 04-12-2023 Cholesterol in HDL [Mass/Vol] 84 mg/dL >40 [facility] Comment on above: The drugs N-Acetylcy steine and Metamizole may falsely depress this assay. Reference Range HDL <40 mg/dL Low HDL Cholesterol HDL >or= 60 mg/dL High HDL Cholesterol Serum or plasma cholesterol in VLDL measurement (mass/volume)Ordered By: Dee Pratt on 04-12-2023 Cholesterol in VLDL [Mass/Vol] 11 mg/dL 5-40 [facility] Serum or plasma low density lipoprotein (LDL) cholesterol measurement (mass/volume)Ordered By: Dee Pratt on 04-12-2023 Cholesterol in LDL [Mass/Vol] 153 mg/dL 0-130 [facility] Vital Signs Date Time Vital Sign Value Performing Clinician Faci lity 05-15-2023 09:53-0400 Body height 162.56 cm [facility] Hospital Encounters Encounter Date Encounter Type Care Provider Facility Start: 05-19-2025 ambulatory Mando Lema BAG MACHINE TENDER Facil ity:[facility] Start: 04-26-2025 End: 04-26-2025 ambulatory Mando Lema BAG MACHINE TENDER-C Work Phone: [facility] Start: 04-26-2025 End: 04-26-2025 Patient encounter procedure Mando Lema BAG MACHINE TENDER-C -Laboratory [facility] Start: 04-26-2025 End: 04-26-2025 ambulatory Mando Lema BAG MACHINE TENDER Facility:[facility] Start: 05-18-2024 End: 05-18-2024 ambulatory Dee Pratt Facility:[facility] Start: 05-15-2023 End: 05-15-2023 ambulatory [facility] Work Phone: Start: 05-15-2023 End: 05-15-2023 Patient encounter procedure [facility]-Outpatient Bone Densitometry Work Phone: Start: 04-12-2023 End: 04-12-2023 ambulatory [facility] Work Phone: Start: 04-12-2023 End: 04-12-2023 [facility] Start: 01-18-2023 End: 01-18-2023 [facility] Start: 05-14-2022 End: 05-14-2022 Patient encounter procedure [facility]-Outpatient Breast Imaging Procedures Date Procedure Procedure Detail Performing Clinician Start: 05-15-2023 Dual energy X-ray absorptiometry Start: 05-15-2023 Screening mammography Start: 01-18-2023 Plain x-ray of hand Start: 05-14-2022 Screening mammography Payers Date Payer Category Payer Self-pay [id number] 2024 Unknown [id number] Unknown [id number] Unknown [id number] Unknown [id number] Unknown [id number] Unknown [id number] Social History Date Type Detail Facility Start: 09-27-2021 Tobacco smoking stat [facility] Unknown if ever smoked [facility] Start: 1960 Sex Assigned At Female [facility] Start: 09-27-[address] Evaluation note Note Date & Type Note Facility Evaluation note No assessment information availa ble [facility] Work Phone: Reason for referral (narrative) Note Date & Type Note Facility Reason for referral (narrative) No reason for referral information available [facility] Work Phone: Chief Complaint and Reason for Visit Chief Complaint SCREENING Chief Complaint HAND PAIN Chief Complaint SCREENING/POST LINUS Family History No Family History Records Found Relationship Condition Age at Onset Recorded Date/T aftab grandmother Malignant neoplasm of colon Unknown father Diabetes mellitus Unknown Cardiac disease Unknown Cerebrovascular accident (CVA) Unknown grandfather Cardiac disease Unknown Summary Purpose Advance Directives No Advanced Directives Records Found Additional Source Comments Goals (unrecognized section and content) Goals may be documented in a n alternate sectionGoals may be documented in an alternate sectionGoals may be documented in an alternate sectionGoals may be documented in an alternate section Care Teams (unrecognized sec tion and content) Team Status: Active Member Role Status Dates Dr. Dee Pratt MD Family Provider Active Dr. Dee Pratt MD Primary Care Provider Active Team Status: Inactive Member Role Status Dates Dr. Dee Pratt MD Primary Care Prov ider, Attending Provider, Referring Provider Active Team Status: Inactive Member Role Status Dates Dr. Dee Pratt MD Primary Care Provider, Attendin g Provider Active Team Status: Active Member Role/Relationship Status Dates aMndo Lema BAG MACHINE TENDER, BAG MACHINE TENDER-C Primary Care Provider Active Team Status: Inactive Member Role/Relationship Status Dates Mando Fung BAG MACHINE TENDER, BAG MACHINE TENDER-C Primary Care Provider Active Start: April 26, 2025 End: April 26, 2025 Mando Lema BAG MACHINE TENDER, BAG MACHINE TENDER-C Attending Provider Active Start: April 26, 2025 End: April 26, 2025 Mando Lema BAG MACHINE TENDER, BAG MACHINE TENDER-C Referring Provider Active Start: April 26, 2025 End: April 26, 2025 INFORMATION SOURCE (unrecogn ized section and content) DATE CREATED AUTHOR 05/16/2025 [facility] FOR RECORDS PERTAINING TO PATIENTS WHO ARE OR HAVE BEEN ENROLLED IN A CHEMICAL DEPENDENCY/SUBSTANCEABUSE PROGRAM, SOME INFORMATION MAY BE OMITTED. This clinical summary was aggregated from multiple sources. Caution should be exercised in using it in the provision of clinical care. This summary normalizes information from multiple sources, and as a consequence, information in this document may materially change the coding, format and clinical context of patient data. In addition, data may be omitted in some cases. CLINICAL DECISIONS SHOULD BE BASED ON THE PRIMARY CLINICAL RECORDS. [employer] [facility]. provides no warranty or guarantee of the accuracy or completeness of information in this document.
== END | disposition home or self-care (01) ==
DX: Z12.31 Encounter for screening mammogram for malignant neoplasm of breast (principal); Z78.0 Asymptomatic menopausal state; Z13.820 Encounter for screening for osteoporosis
CPT/HCPCS: 77063; 77067; 77080